=== PATIENT | male | born 1980 | race Asian ===

== ENCOUNTER 2021-10-05 11:15 | Emergency (ER) | payer OTHER ==
[~2021-10-05] VITALS: Ht 175.3 cm; Wt 72.6 kg
[2021-10-05 11:19] VITALS: BP 146/91; TEMP 98.9
== END 2021-10-05 13:34 | disposition home or self-care (01) ==
LOC: ED 11:15
DX: L03.116 Cellulitis of left lower limb (principal)
CPT/HCPCS: 96372; 99283; J0696